=== PATIENT | female | born 1970 | race Caucasian/White ===

== ENCOUNTER 2018-02-08 09:53 | Outpatient (RCR) ==
--- NOTE | 2018-02-08 14:14 | RS.OTEVAL ---
Subjective Date of Note: 02/08/18 Visit #: 1 Date of Evaluation: 02/08/18 Payer Source: Insurance Date of Onset/Injury/Change in Status: 11/25/17 Treatment Diagnosis: M75.02 Adhesive Capsulitis of left shoulder Treatment Side (optional): Left *Precautions: Has had falls recently this year. She has fallen off of her porch several Prior Level of Function.....Patient was independent with: ADL's, Self Care, Work /Vocation, Caregiving, Ambulation/Mobility, Community Integration/Access History of Condition/Mechanism of Injury: Pt reports she has fallen several times off of her porch but does not know exactly when or if she injured her shoulder. Level of Function: Pt has 93% impaired function of the left shoulder and Upper extremity. Pt reports she did drive today with the RUE but she has not been driving. Pt has difficulty sleeping. Pt has moderate difficulty donning her shirts and pulling up her pants. Pt is not able to vacuum or complete combing her hair. Functional Limitations: Sleep, Self Care, ADL's, Reaching, Pushing, Pulling, Lifting, Carrying, Sitting, Standing, Bending, Squatting, Ambulation, Community Access/Integration Current Complaints/Gains: Pt complains that she has gotten in this shape. 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 Pt reports she hurt her back and has been on pain pills since. Pt reports she wants something to be done to help her with her back. Pt reports she did not take her steroids but that she will now. Pt is depressed and cried 2-3 times during the evaluation due to her current situation. Pt does not have motivation. She verbalizes that she wants to have her back fixed and get off of the pain medications. 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 Pt has a few disc bulges, and DDD in her spine. Pt has had accidents where she fell off of the porch and may have her her shoulder then. She is not aware of a specific injury to her shoulder. Diagnostic Testing/Imaging:: x-ray of the left shoulder Hx Home Medications: Estrace, Buspar, Clonapine, Soma, Loratab 10 Patient's Goals: To get her LUE pain free and then get in shape and get to feeling better. Pain Assessment - Pain Description Pain Description: Burning, Tightness, Radiating, Sharp, Throbbing, Acute Pain Location: Left shoulder down to her left wrist. Pain Description: sharp, tender to touch, radiates, shoots up her arm. Current Pain Intensity: 10/10 Worst Pain Intensity: 10/10 Other comments regarding pain:: Pt cried with therapist trying to move the LUE into abduction to measure internal rotation and external rotation. Functional Outcome Measures UE Functional Index: 93 - G Codes & Severity Modifier G Codes: Current impaired percentage is 93% or CM, Goal is CI Source of G Code score: Carry, moving, and handling. Observation - Observation Posture: Rounded Shoulders Handedness: Right Additional Comments: Pt LUE has edema in the posterior scapula, trapezius, collar bone area, and pectoralis muscle. Shoulder ROM: Right WFL's Shoulder Muscle Strength: Right WFL's - Left Shoulder ROM Left Shoulder Flexion: 59 Left Shoulder Extension: 20 Left Shoulder Abduction: 49 Left Shoulder Horizontal Abduction: 0 Left Shoulder Horizontal Adduction: 0 Left Shoulder Internal Rotation: 0 Left Shoulder External Rotation: 0 Left Shoulder ROM Limitations: Soft Tissue Tightness, Muscle Weakness, Pain - Left Shoulder Strength Left Shoulder Flexion: 3- Fair- Left Shoulder Extension: 3- Fair- Left Shoulder Abduction: 3- Fair- Left Shoulder Adduction: 3- Fair- Left Shoulder External Rotation: 3- Fair- Left Shoulder Internal Rotation: 3- Fair- Elbow ROM: Left WFL's Elbow Muscle Strength: Right WFL's - Left Elbow Strength Left Elbow Extension: 3- Fair- Left Elbow Flexion: 3- Fair- Left Forearm Pronation: 3- Fair- Left Forearm Supination: 3- Fair- Wrist ROM: Bilaterally WFL's Wrist Muscle Strength: Right WFL's - Left Wrist Strength Left Wrist Extension: 3- Fair- Left Wrist Flexion: 3- Fair- Left Wrist Radial Deviation: 3- Fair- Left Wrist Ulnar Deviation: 3- Fair- Left Forearm Pronation: 3- Fair- Left Forearm Supination: 3- Fair- - Guard Immigration Strength Left Guard Immigration Strength: 9 Right Guard Immigration Strength: 40 Guard Immigration Strength Left Hand Guard Immigration Strength: 9 Right Hand Guard Immigration Strength: 40 Dynamometer Testing Position: 2nd Position Palpation Palpation Findings: Tenderness, Trigger Point, Muscle Guarding Sensation Right Upper Extremity: Intact/Normal Left Upper Extremity: Intact/Normal Sensation Description: Within Normal Limits Comments: At times she has tingling sensations and sharp bolts of pain in the left shoulder and LUE. Modalities - Hot Pack/Cryotherapy Treatment: Cryotherapy Interventions - Exercise/Activities Exercise/Activities/Manual Therapy: Manual therapy to the subscapularis muscle of the LUE. Pt tolerated posterior scapula tender points. HOME EXERCISE PROGRAM: Take her steroids and ice her shoulder 3x a day - Other Treatment/Services Treatment Details: OT to provide Estim to LUE on high volt to decrease pain. Ultrasound to the LUE to decrease pain and increase External and internal rotation. - Objective Findings Objective Findings:: Pt has pain 10/10 and patient cried with abduction, IR, ER of LUE. - Charges Timed Code Treatment Minutes: 70 Total Treatment Time: 70 Procedures billed for this date of service:: Evaluation medium, MT x 2, CP EVALUATION COMPLEXITY LEVEL: HISTORY: Medium, EXAM OF BODY SYSTEMS: Medium, CLINICAL DECISION MAKING: Medium Assessment Assessment: Pt has edema of the LUE shoulder. Pt has inflammation and is very limited in AROM. Pt has pain 10/10. Pt is limited in functional use and AROM of the LUE in shoulder flexion, extension, abduction, Int. Rot., Ext. Rot. Pt having difficulty with all ADLS. Her is now helpling her get dressed, bathed, etc. Rehab Potential: Good Problems/Comments: Excruciating pain 10/10. Pt has very limited use and ROM of the LUE. Pt has 93% impaired LUE function Short Term Goals Goal #1: Pt pain to decrease to 5/10 at rest. Goal to be met by: 02/22/18 Goal #2: Pt to increase L shldr flexion to 100 deg. to increase combing her hair. Goal to be met by: 02/22/18 Goal #3: Pt to increase L abd. to 90 deg. to increase donning her shirt. Goal to be met by: 02/22/18 Goal #4: Pt to increase ext. Rot. to 45 deg. Goal to be met by: 02/22/18 Wood Chopper Goals Goal #1: Pt pain to decrease to 0-1/10 at rest. Goal to be met by: 03/22/18 Goal #2: Pt to increase L shldr flexion to 150 deg. to increase combing her hair. Goal to be met by: 03/22/18 Goal #3: Pt to increase L abd. to 120deg. to increase donning her shirt. Goal to be met by: 03/22/18 Goal #4: Pt to increase ext. Rot. to 70 deg. Goal to be met by: 03/22/18 Plan - Treatment to be provided Procedures: Therapeutic Exercises, Therapeutic Activity, Gait Training, Neuromuscular Rehab, Manual Therapy, Patient Education Modalities: Electrical Stimulation, Ultrasound/Phonophoresis, Class IV Laser, Cryotherapy, Hot Packs - Treatment Plan Frequency: 3 X week Duration: 6 weeks ORDER # VISITS AND/OR THROUGH DATE: 18 - Treatment Code (1) Stiffness of left shoulder joint Code(s): M25.612 - STIFFNESS OF LEFT SHOULDER, NOT ELSEWHERE CLASSIFIED Comments: M25.612 shoulder joint stiffness (2) Left shoulder pain Code(s): M25.512 - PAIN IN LEFT SHOULDER Qualifiers: Chronicity: acute Qualified Code(s): M25.512 - Pain in left shoulder (3) Limited range of motion (ROM) of shoulder Code(s): M25.619 - STIFFNESS OF UNSPECIFIED SHOULDER, NOT ELSEWHERE CLASSIFIED Comments: M25.619 Limited AROM of Left shoulder
== END 2018-02-10 23:59 | disposition short-term general hospital (02) ==
PROVIDERS: ATTEND Orthopaedic Surgery
DX: M75.02 Adhesive capsulitis of left shoulder (principal)

== ENCOUNTER 2018-02-21 10:00 | Outpatient (RCR) ==
--- NOTE | 2018-02-12 08:25 | RS.OTDNOTE ---
Subjective Date of Note: 02/11/18 Visit #: 2 Date of Evaluation: 02/08/18 Payer Source: Insurance Treatment Diagnosis: M75.02 Adhesive Capsulitis of left shoulder *Precautions: Has had falls recently this year. She has fallen off of her porch several Current Complaints/Gains: Pt tearful during PROM. Pt positioned in supine positon. Pt states she did not take pain meds prior to therapy and was ed on pain levin, ice pack, and use of e=stim during tx and home use of tens unit/CP. Pain Assessment - Pain Description Pain Description: Burning, Tightness, Radiating, Sharp Pain Location: Left shoulder down to her left wrist. Pain Description: sharp, tender to touch, radiates, shoots up her arm. Current Pain Intensity: 8 Worst Pain Intensity: 10 Other comments regarding pain:: Pt guards UE Modalities - Treatment Modality: Electrical Stim Attended Parameters/Method Applied: Unattended estim x15 mins with CP applied in supine position. Attended estim x15 mins with PROM performed in supine position. Treatment Area: cross current to pt tolerance Patient Position: Supine - Hot Pack/Cryotherapy Treatment: Cryotherapy Comments:: CP x 15 mins Interventions - Exercise/Activities Exercise/Activities/Manual Therapy: Manual therapy to the subscapularis muscle of the LUE. Pt tolerated posterior scapula tender points. PROM gentle stretching performed in supine position. Pt ed on A/AROM, codman's, table-top AROM, and isometric ex's. HOME EXERCISE PROGRAM: Take her steroids and ice her shoulder 3x a day - Objective Findings Objective Findings:: Pt has pain 10/10 and patient cried with abduction and IR/ ER of LUE. Pt ed for pain elvin/med's, CP application, and home use of tens unit. - Charges Timed Code Treatment Minutes: 20 Total Treatment Time: 50 Procedures billed for this date of service:: CP ESTIM EX Assessment Patient Education: Education of diagnosis, Body/Joint mechanics, Home Exercise Program, Home Safety, Activity Modification, Education of Plan of Care Patient demonstrates compliance with HEP?: Yes Short Term Goals Goal #1: Pt pain to decrease to 5/10 at rest. Goal to be met by: 02/22/18 Progress towards goal: No Change Goal #2: Pt to increase L shldr flexion to 100 deg. to increase combing her hair. Goal to be met by: 02/22/18 Progress towards goal: No Change Goal #3: Pt to increase L abd. to 90 deg. to increase donning her shirt. Goal to be met by: 02/22/18 Progress towards goal: No Change Goal #4: Pt to increase ext. Rot. to 45 deg. Goal to be met by: 02/22/18 Progress towards goal: No Change Home Health Assistant Goals Goal #1: Pt pain to decrease to 0-1/10 at rest. Goal to be met by: 03/22/18 Progress towards goal: No Change Goal #2: Pt to increase L shldr flexion to 150 deg. to increase combing her hair. Goal to be met by: 03/22/18 Progress towards goal: No Change Goal #3: Pt to increase L abd. to 120deg. to increase donning her shirt. Goal to be met by: 03/22/18 Progress towards goal: No Change Goal #4: Pt to increase ext. Rot. to 70 deg. Goal to be met by: 03/22/18 Progress towards goal: No Change Plan PLAN OF CARE EXPIRES ON:: 03/22/18 ORDER # VISITS AND/OR THROUGH DATE: 18 PLAN: Cont per POC to increase (L) UE AROM and decrease c/o pain.
--- NOTE | 2018-02-14 11:08 | RS.OTDNOTE ---
Subjective Date of Note: 02/13/18 Visit #: 3 Date of Evaluation: 02/08/18 Payer Source: Insurance Treatment Diagnosis: M75.02 Adhesive Capsulitis of left shoulder *Precautions: Has had falls recently this year. She has fallen off of her porch several Current Complaints/Gains: Pt states good compliance with CP application and performing codman's ex. States she took a pain pill today prior to therapy. Pain Assessment - Pain Description Pain Description: Burning, Tightness, Radiating, Sharp Pain Location: Left shoulder down to her left wrist. Pain Description: sharp, tender to touch, radiates, shoots up her arm. Current Pain Intensity: 6 Worst Pain Intensity: 10 Modalities - Treatment Modality: Ultrasound Parameters/Method Applied: 1.0w/cm2 x 20 mins Treatment Area: shoulder Patient Position: Sitting - Hot Pack/Cryotherapy Treatment: Cryotherapy Comments:: cp x 10 mins following PROM Interventions - Exercise/Activities Exercise/Activities/Manual Therapy: Manual therapy to the subscapularis muscle of the LUE. Pt tolerated posterior scapula tender points. PROM gentle stretching performed in supine position shoulder and elbow/wrist all directions with prolonged stretching. Codman's performed x 4 directions. Pt ed continued on A/AROM, codman's, table-top AROM, and isometric ex's. HOME EXERCISE PROGRAM: Take her steroids and ice her shoulder 3x a day - Objective Findings Objective Findings:: Pt has pain 10/10 and patient cried with abduction and IR/ ER of LUE. Pt ed for pain elvin/med's, CP application, and home use of tens unit. - Charges Timed Code Treatment Minutes: 48 Total Treatment Time: 58 Procedures billed for this date of service:: CP MT US EX Assessment Patient Education: Education of diagnosis, Body/Joint mechanics, Home Exercise Program, Home Safety, Activity Modification, Education of Plan of Care Patient demonstrates compliance with HEP?: Yes Short Term Goals Goal #1: Pt pain to decrease to 5/10 at rest. Goal to be met by: 02/22/18 Progress towards goal: Progressing Goal #2: Pt to increase L shldr flexion to 100 deg. to increase combing her hair. Goal to be met by: 02/22/18 Progress towards goal: Progressing Goal #3: Pt to increase L abd. to 90 deg. to increase donning her shirt. Goal to be met by: 02/22/18 Progress towards goal: Progressing Goal #4: Pt to increase ext. Rot. to 45 deg. Goal to be met by: 02/22/18 Progress towards goal: Progressing Senior Care Goals Goal #1: Pt pain to decrease to 0-1/10 at rest. Goal to be met by: 03/22/18 Progress towards goal: Progressing Goal #2: Pt to increase L shldr flexion to 150 deg. to increase combing her hair. Goal to be met by: 03/22/18 Progress towards goal: Progressing Goal #3: Pt to increase L abd. to 120deg. to increase donning her shirt. Goal to be met by: 03/22/18 Progress towards goal: Progressing Goal #4: Pt to increase ext. Rot. to 70 deg. Goal to be met by: 03/22/18 Progress towards goal: Progressing Plan PLAN OF CARE EXPIRES ON:: 03/22/18 ORDER # VISITS AND/OR THROUGH DATE: 18 PLAN: Continue per POC to max fx UE strength/ROM with decreased c/o pain.
--- NOTE | 2018-02-15 15:05 | RS.OTDNOTE ---
Subjective Date of Note: 02/15/18 Visit #: 4 Date of Evaluation: 02/08/18 Payer Source: Insurance Treatment Diagnosis: M75.02 Adhesive Capsulitis of left shoulder *Precautions: Has had falls recently this year. She has fallen off of her porch several Current Complaints/Gains: Pt states she "just wants my life back" several times. States she feels therapy is helping with her UE but is concerned with her back and neck issues also. States she has went to pain elvin and had injections for neck and back pain. Pain Assessment - Pain Description Pain Description: Burning, Tightness, Radiating, Sharp Pain Location: Left shoulder down to her left wrist. Pain Description: sharp, tender to touch, radiates, shoots up her arm. Current Pain Intensity: 4 Worst Pain Intensity: 8 Modalities - Treatment Modality: Ultrasound Parameters/Method Applied: .05w/cm2 x 20 mins Treatment Area: shoulder Patient Position: Sitting - Hot Pack/Cryotherapy Treatment: Cryotherapy (CP x 10 mins) Interventions - Exercise/Activities Exercise/Activities/Manual Therapy: Manual therapy to the subscapularis muscle of the LUE. Pt tolerated posterior scapula tender points. PROM gentle stretching performed in supine position shoulder and elbow/wrist all directions with prolonged stretching. Codman's performed x 4 directions. Finger ladder, ball wall circles performed. Pt ed continued on A/AROM, codman's, table-top AROM, and isometric ex's. HOME EXERCISE PROGRAM: Take her steroids and ice her shoulder 3x a day - Objective Findings Objective Findings:: Pt has pain 10/10 and patient cried with abduction and IR/ ER of LUE. Pt ed for pain elvin/med's, CP application, and home use of tens unit. - Charges Timed Code Treatment Minutes: 48 Total Treatment Time: 57 Procedures billed for this date of service:: CP US MT EX Assessment Patient Education: Education of diagnosis, Body/Joint mechanics, Home Exercise Program, Home Safety, Activity Modification, Education of Plan of Care Patient demonstrates compliance with HEP?: Yes Short Term Goals Goal #1: Pt pain to decrease to 5/10 at rest. Goal to be met by: 02/22/18 Progress towards goal: Progressing Goal #2: Pt to increase L shldr flexion to 100 deg. to increase combing her hair. Goal to be met by: 02/22/18 Progress towards goal: Progressing Goal #3: Pt to increase L abd. to 90 deg. to increase donning her shirt. Goal to be met by: 02/22/18 Progress towards goal: Progressing Goal #4: Pt to increase ext. Rot. to 45 deg. Goal to be met by: 02/22/18 Progress towards goal: Progressing Residential Goals Goal #1: Pt pain to decrease to 0-1/10 at rest. Goal to be met by: 03/22/18 Progress towards goal: Progressing Goal #2: Pt to increase L shldr flexion to 150 deg. to increase combing her hair. Goal to be met by: 03/22/18 Progress towards goal: Progressing Goal #3: Pt to increase L abd. to 120deg. to increase donning her shirt. Goal to be met by: 03/22/18 Progress towards goal: Progressing Goal #4: Pt to increase ext. Rot. to 70 deg. Goal to be met by: 03/22/18 Progress towards goal: Progressing Plan PLAN OF CARE EXPIRES ON:: 03/22/18 ORDER # VISITS AND/OR THROUGH DATE: 18 PLAN: Cont per POC to max fx UE strength/ROM
--- NOTE | 2018-02-18 14:38 | RS.OTDNOTE ---
Subjective Date of Note: 02/18/18 Visit #: 4 Date of Evaluation: 02/08/18 Payer Source: Insurance Treatment Diagnosis: M75.02 Adhesive Capsulitis of left shoulder *Precautions: Has had falls recently this year. She has fallen off of her porch several Current Complaints/Gains: Pt agress she didn't hurt her arm overnight and she shouldn't expect to have it fixed overnight. States she is feeling she is making progress but is slow progress. Pain Assessment - Pain Description Pain Description: Burning, Tightness, Radiating, Sharp Pain Location: Left shoulder down to her left wrist. Pain Description: sharp, tender to touch, radiates, shoots up her arm. Current Pain Intensity: 3 Worst Pain Intensity: 8 Modalities - Treatment Modality: Electrical Stim Unattended Parameters/Method Applied: x 4 pads cross current to max peak of 125V, 20 mins Treatment Area: shoulder Patient Position: Sitting - Hot Pack/Cryotherapy Treatment: Cryotherapy Interventions - Exercise/Activities Exercise/Activities/Manual Therapy: Manual therapy to the subscapularis muscle of the LUE. Pt tolerated posterior scapula tender points. PROM gentle stretching performed in supine position shoulder and elbow/wrist all directions with prolonged stretching. AROM shoulder protraction/isometric ex's. Codman's performed x 4 directions. Finger ladder, ball wall circles, and shelf AROM performed. Pt ed continued on A/AROM, codman's, table-top AROM, and isometric ex's. HOME EXERCISE PROGRAM: Take her steroids and ice her shoulder 3x a day - Objective Findings Objective Findings:: Pt has pain 10/10 and patient cried with abduction and IR/ ER of LUE. Pt ed for pain elvin/med's, CP application, and home use of tens unit. - Charges Timed Code Treatment Minutes: 42 Total Treatment Time: 61 Procedures billed for this date of service:: CP ESTIM EX MT Assessment Patient Education: Education of diagnosis, Body/Joint mechanics, Home Exercise Program, Home Safety, Activity Modification, Education of Plan of Care Patient demonstrates compliance with HEP?: Yes Short Term Goals Goal #1: Pt pain to decrease to 5/10 at rest. Goal to be met by: 02/22/18 Progress towards goal: Progressing Goal #2: Pt to increase L shldr flexion to 100 deg. to increase combing her hair. Goal to be met by: 02/22/18 Progress towards goal: Progressing Goal #3: Pt to increase L abd. to 90 deg. to increase donning her shirt. Goal to be met by: 02/22/18 Progress towards goal: Progressing Goal #4: Pt to increase ext. Rot. to 45 deg. Goal to be met by: 02/22/18 Progress towards goal: Progressing [facility] Goals Goal #1: Pt pain to decrease to 0-1/10 at rest. Goal to be met by: 03/22/18 Progress towards goal: Progressing Goal #2: Pt to increase L shldr flexion to 150 deg. to increase combing her hair. Goal to be met by: 03/22/18 Progress towards goal: Progressing Goal #3: Pt to increase L abd. to 120deg. to increase donning her shirt. Goal to be met by: 03/22/18 Progress towards goal: Progressing Goal #4: Pt to increase ext. Rot. to 70 deg. Goal to be met by: 03/22/18 Progress towards goal: Progressing Plan PLAN OF CARE EXPIRES ON:: 03/22/18 ORDER # VISITS AND/OR THROUGH DATE: 18 PLAN: Cont per POC to max fx UE strength and AROM
--- NOTE | 2018-02-19 11:18 | RS.OTCXNS ---
OT Case Note Date of Scheduled Appointment: 02/19/18 Type: Cancel
--- NOTE | 2018-02-21 11:54 | RS.OTPN ---
Subjective Date of Note: 02/21/18 Visit #: 6 Date of Evaluation: 02/08/18 Payer Source: Insurance Date of Onset/Injury/Change in Status: 11/25/17 Treatment Diagnosis: M75.02 Adhesive Capsulitis of left shoulder Treatment Side (optional): Left *Precautions: Has had falls recently this year. She has fallen off of her porch several Prior Level of Function.....Patient was independent with: ADL's, Self Care, Work /Vocation, Caregiving, Ambulation/Mobility, Community Integration/Access History of Condition/Mechanism of Injury: Pt reports she has fallen several times off of her porch but does not know exactly when or if she injured her shoulder. Level of Function: Pt has 93% impaired function of the left shoulder and Upper extremity. Pt reports she did drive today with the RUE but she has not been driving. Pt has difficulty sleeping. Pt has moderate difficulty donning her shirts and pulling up her pants. Pt is not able to vacuum or complete combing her hair. Functional Limitations: Sleep, Self Care, ADL's, Reaching, Pushing, Pulling, Lifting, Carrying, Sitting, Standing, Bending, Squatting, Ambulation, Community Access/Integration Current Complaints/Gains: Pt reports her pain has decreased to 4/10 today. Pt reports a clicking with sharp pain in the collar bone area. OT heard a clicking sound with flexion however this sound was intermittent. Pain Assessment - Pain Description Pain Description: Burning, Tightness, Radiating, Sharp Pain Location: Left shoulder down to her left wrist. Pain Description: sharp, tender to touch, radiates, shoots up her arm. Current Pain Intensity: 4/10 Worst Pain Intensity: 9/10 Other comments regarding pain:: Pain after treatment was a 5/10. Functional Outcome Measures UE Functional Index: 91 - G Codes & Severity Modifier G Codes: Current is CM of 91% impaired. Goal is Source of G Code score: Carry, moving, and handling Observation - Observation Posture: Forward Head, Rounded Shoulders Handedness: Right Shoulder ROM: Right WFL's Shoulder Muscle Strength: Right WFL's - Left Shoulder ROM Left Shoulder Flexion: 90 Left Shoulder Extension: 25 Left Shoulder Abduction: 85 Left Shoulder Internal Rotation: 20 Left Shoulder External Rotation: 30 Left Shoulder ROM Limitations: Soft Tissue Tightness, Muscle Weakness, Pain - Left Shoulder Strength Left Shoulder Flexion: 3- Fair- Left Shoulder Extension: 3- Fair- Left Shoulder Abduction: 3- Fair- Left Shoulder Adduction: 3- Fair- Left Shoulder External Rotation: 2+ Poor+ Left Shoulder Internal Rotation: 2+ Poor+ Elbow ROM: Bilaterally WFL's Elbow Muscle Strength: Right WFL's - Left Elbow Strength Left Elbow Extension: 4- Good- Left Elbow Flexion: 4- Good- Left Forearm Pronation: 4- Good- Left Forearm Supination: 4- Good- Wrist ROM: Bilaterally WFL's Wrist Muscle Strength: Right WFL's - Right Wrist Strength Right Wrist Extension: 4- Good- Right Wrist Flexion: 4- Good- Right Wrist Radial Deviation: 4- Good- Right Wrist Ulnar Deviation: 4- Good- Right Forearm Pronation: 4- Good- Right Forearm Supination: 4- Good- Palpation Palpation Findings: Tenderness, Trigger Point, Muscle Guarding Sensation Right Upper Extremity: Intact/Normal (Sensation has improved some.) Left Upper Extremity: Intact/Normal Comments: At times she has tingling sensations and sharp bolts of pain in the left shoulder and LUE. Modalities - Treatment Modality: Ultrasound Parameters/Method Applied: .4 w/cm2 for 9 minutes to the Right supraspinatus muscles to decrease pain. - Hot Pack/Cryotherapy Treatment: Cryotherapy Comments:: Cold to the Left shoulder for 10 minutes Interventions - Exercise/Activities Exercise/Activities/Manual Therapy: Manual therapy to the subscapularis muscle of the LUE. Pt tolerated posterior scapula tender points. PROM gentle stretching performed in supine position shoulder and elbow/wrist all directions with prolonged stretching. AROM shoulder protraction/isometric ex's. Codman's performed x 4 directions. Finger ladder, ball wall circles, and shelf AROM performed. Pt ed continued on A/AROM, codman's, table-top AROM, and isometric ex's. HOME EXERCISE PROGRAM: Take her steroids and ice her shoulder 3x a day - Objective Findings Objective Findings:: Pt has pain 10/10 and patient cried with abduction and IR/ ER of LUE. Pt ed for pain elvin/med's, CP application, and home use of tens unit. - Charges Timed Code Treatment Minutes: 65 Total Treatment Time: 60 Procedures billed for this date of service:: US, MT x 2, EX, CP Assessment Assessment: Pt has made progress with her occupational therapy treatment. Pt has increased her shoulder AROM approximately 50%. Pt is now able to complete shoulder flexion to 90 deg. with a clicking sound to the Left clavicle with the shoulder flexion AROM. Pt reports excruciating pain when there is a clicking. Pt continues with 91% impairments in UE functional use. Rehab Potential: Good Problems/Comments: Decreased shoulder AROM, increased pain in the LUE shoulder. Pt continues with pain limiting her functional occupational performance. Pt has a clicking sound in her collar bone area with shoulder flexion intermittently. Short Term Goals Goal #1: Pt pain to decrease to 5/10 at rest. Goal to be met by: 02/22/18 Progress towards goal: Progressing Goal #2: Pt to increase L shldr flexion to 100 deg. to increase combing her hair. Goal to be met by: 02/22/18 Progress towards goal: Progressing Goal #3: Pt to increase L abd. to 90 deg. to increase donning her shirt. Goal to be met by: 02/22/18 Progress towards goal: Progressing Goal #4: Pt to increase ext. Rot. to 45 deg. Goal to be met by: 02/22/18 Progress towards goal: Progressing Skilled Nursing Goals Goal #1: Pt pain to decrease to 0-1/10 at rest. Goal to be met by: 03/22/18 Progress towards goal: Progressing Goal #2: Pt to increase L shldr flexion to 150 deg. to increase combing her hair. Goal to be met by: 03/22/18 Progress towards goal: Progressing Goal #3: Pt to increase L abd. to 120deg. to increase donning her shirt. Goal to be met by: 03/22/18 Progress towards goal: Progressing Goal #4: Pt to increase ext. Rot. to 70 deg. Goal to be met by: 03/22/18 Progress towards goal: Progressing Plan PLAN OF CARE EXPIRES ON:: 03/22/18 ORDER # VISITS AND/OR THROUGH DATE: 18 PLAN: Pt goes to the doctor on 02/25/18. Pt feels that she needs to have the doctor to look at her shoulder again. Pt improving, however, she has pain in clicking in the Left shoulder with shoulder flexion. Frequency: 3 X week Duration: 4 weeks
== END 2018-03-13 23:59 ==
PROVIDERS: ATTEND Orthopaedic Surgery
DX: M75.02 Adhesive capsulitis of left shoulder (principal)

== ENCOUNTER 2018-03-13 10:00 | Outpatient (RCR) ==
--- NOTE | 2018-03-08 15:15 | RS.OTEVAL ---
Subjective Date of Note: 03/08/18 Visit #: 1 Number of visits approved by Insurance: 9 Date of Evaluation: 02/08/18 Payer Source: Insurance Date of Onset/Injury/Change in Status: 11/25/17 Surgery Performed?: Yes Date of Procedure: 03/07/18 Treatment Diagnosis: M75.02 Adhesive Capsulitis of left shoulder Treatment Side (optional): Left *Precautions: Has had falls recently this year. She has fallen off of her porch several Prior Level of Function.....Patient was independent with: ADL's, Self Care, Work /Vocation, Caregiving, Ambulation/Mobility, Community Integration/Access History of Condition/Mechanism of Injury: Pt reports she has fallen several times off of her porch but does not know exactly when or if she injured her shoulder. Level of Function: Pt has 97% impaired function of the left shoulder and Upper extremity. Pt reports she did drive today with the other arm. Pt has difficulty sleeping. Pt has moderate difficulty donning her shirts and pulling up her pants. Pt's had to help her get dressed. Pt is not able to vacuum or complete combing her hair. Functional Limitations: Sleep, Self Care, ADL's, Reaching, Pushing, Pulling, Lifting, Carrying, Sitting, Standing, Bending, Squatting, Ambulation, Community Access/Integration Current Complaints/Gains: Following surgery, patient has increased PROM, increased pain and decreased AROM due to edema and pain. Pt continues with limited external rotation. Pt has increased ABD, shoulder flexion and internal rotation. Pt pain is 9/10 at beginning of evaluation. 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 Pt has a few disc bulges, and DDD in her spine. Pt has had accidents where she fell off of the porch and may have her her shoulder then. She is not aware of a specific injury to her shoulder. Surgical History Comments:: Pt had a Left shoulder manipulation completed on . Diagnostic Testing/Imaging:: x-ray of the left shoulder Hx Home Medications: Estrace, Buspar, Clonapine, Soma, Loratab 10 Patient's Goals: To get her LUE pain free and then get in shape and get to feeling better. Pain Assessment - Pain Description Pain Description: Burning, Tightness, Sharp, Throbbing, Aching, Acute Pain Location: Left shoulder down to her left wrist. Pain in the deltoid. Pain Description: sharp, tender to touch, radiates, shoots up her arm. Current Pain Intensity: 9/10 Worst Pain Intensity: 10/10 Functional Outcome Measures UE Functional Index: 97 - G Codes & Severity Modifier G Codes: Initial CM at 97.5% impaired. Goal is CH Source of G Code score: Carry, moving, and handling Objects. Observation - Observation Posture: Forward Head, Rounded Shoulders Handedness: Right Shoulder ROM: Right WFL's Shoulder Muscle Strength: Right WFL's - Left Shoulder ROM Left Shoulder Flexion: 70 Left Shoulder Extension: 23 Left Shoulder Abduction: 58 Left Shoulder Horizontal Abduction: 0 Left Shoulder Horizontal Adduction: 10 Left Shoulder Internal Rotation: 37 Left Shoulder External Rotation: 0 Left Shoulder ROM Limitations: Soft Tissue Tightness, Muscle Weakness, Pain - Left Shoulder Strength Left Shoulder Flexion: 3- Fair- Left Shoulder Extension: 2+ Poor+ Left Shoulder Abduction: 3- Fair- Left Shoulder Adduction: 3- Fair- Left Shoulder External Rotation: 3- Fair- Left Shoulder Internal Rotation: 3- Fair- () Elbow ROM: Bilaterally WFL's Elbow Muscle Strength: Right WFL's - Left Elbow Strength Left Elbow Extension: 3 Fair Left Elbow Flexion: 3 Fair Left Forearm Pronation: 4- Good- Left Forearm Supination: 4- Good- Wrist ROM: Bilaterally WFL's Wrist Muscle Strength: Right WFL's - Left Wrist Strength Left Wrist Extension: 3 Fair Left Wrist Flexion: 3 Fair Left Wrist Radial Deviation: 3 Fair Left Wrist Ulnar Deviation: 3 Fair Left Forearm Pronation: 3 Fair Left Forearm Supination: 3 Fair - Supervisor Tree Trimming Strength Left Supervisor Tree Trimming Strength: 11 Right Supervisor Tree Trimming Strength: 14 Supervisor Tree Trimming Strength Left Hand Supervisor Tree Trimming Strength: 11 Right Hand Supervisor Tree Trimming Strength: 14 Dynamometer Testing Position: 2nd Position Palpation Palpation Findings: Tenderness, Trigger Point, Muscle Guarding Sensation Right Upper Extremity: Intact/Normal (Sensation has improved some.) Left Upper Extremity: Intact/Normal Additional Comments Additional Comments: Pt reports they gave her a sling to wear but it hurts too much. So patient does not wear the sling. Modalities - Treatment Modality: Ultrasound Parameters/Method Applied: .4 w/cm2 for 10 minutes after setup to LUE shoulder deltoid/ humerus area. Treatment Area: LUE deltoid/humerus area of shoulder Patient Position: Sitting - Hot Pack/Cryotherapy Treatment: Cryotherapy Interventions - Exercise/Activities Exercise/Activities/Manual Therapy: Pt tolerated Codman's performed x 4 directions. Pt educated regarding completing codman's exercises and ice to LUE shoulder to decrease edema and inflammation. HOME EXERCISE PROGRAM: Take her steroids and ice her shoulder 3x a day - Objective Findings Objective Findings:: Pt has pain 9/10 and patient cried off and on during the evaluation. Pt hurt more with abduction and IR/ER of LUE. Pt ed for pain elvin/ med's, CP. - Charges Timed Code Treatment Minutes: 65 Total Treatment Time: 70 Procedures billed for this date of service:: Evaluation-Moderate, US, EX EVALUATION COMPLEXITY LEVEL: HISTORY: Medium, EXAM OF BODY SYSTEMS: Medium, CLINICAL DECISION MAKING: Medium Assessment Assessment: OT able to range patient in full ROM. Pt has increased pain with the external rotation, abduction, and Horizontal adduction. Patient Education: Home Exercise Program, Home Safety, Education of Plan of Care Rehab Potential: Good Problems/Comments: Pt has pain and inflammation in the LUE due to the manipulation. US completed to the deltoid and scapula to decrease pain and decrease scar tissue. Pt has 9/10 pain and is encouraged to start using the arm some. Pt came in for evaluation guarding the left shoulder. Short Term Goals Goal #1: Pt pain to decrease to 5/10 at rest. Goal to be met by: 03/22/18 Goal #2: Pt to increase L shldr flexion to 100 deg. to increase combing her hair. Goal to be met by: 03/22/18 Goal #3: Pt to increase L abd. to 90 deg. to increase donning her shirt. Goal to be met by: 03/22/18 Goal #4: Pt to increase ext. Rot. to 45 deg. Goal to be met by: 03/22/18 Tire Assembler Goals Goal #1: Pt pain to decrease to 0-1/10 at rest. Goal to be met by: 04/01/18 Goal #2: Pt to increase L shldr flexion to 150 deg. to increase combing her hair. Goal to be met by: 04/01/18 Goal #3: Pt to increase L abd. to 120deg. to increase donning her shirt. Goal to be met by: 04/01/18 Goal #4: Pt to increase ext. Rot. to 70 deg. Goal to be met by: 04/01/18 Plan - Treatment to be provided Procedures: Therapeutic Exercises, Therapeutic Activity, Gait Training, Neuromuscular Rehab, Manual Therapy, Patient Education Modalities: Electrical Stimulation, Ultrasound/Phonophoresis, Class IV Laser, Cryotherapy, Hot Packs - Treatment Plan Frequency: 3 X week Duration: 3 weeks Dates of Tire Assembler Goals: 04/01/18 Expiration date of current Insurance Approval:: 04/01/18 - Treatment Code (1) Left shoulder pain Code(s): M25.512 - PAIN IN LEFT SHOULDER Qualifiers: Chronicity: acute Qualified Code(s): M25.512 - Pain in left shoulder (2) Stiffness of left shoulder joint Code(s): M25.612 - STIFFNESS OF LEFT SHOULDER, NOT ELSEWHERE CLASSIFIED Comments: M25.612 Stiffness of left shoulder joint (3) Limited range of motion (ROM) of shoulder Code(s): M25.619 - STIFFNESS OF UNSPECIFIED SHOULDER, NOT ELSEWHERE CLASSIFIED Comments: M25.619 Limited AROM of LEft UE
--- NOTE | 2018-03-13 13:39 | RS.OTDNOTE ---
Subjective Date of Note: 03/11/18 Visit #: 2 Number of visits approved by Insurance: 9 Date of Evaluation: 02/08/18 Payer Source: Insurance Treatment Diagnosis: M75.02 Adhesive Capsulitis of left shoulder *Precautions: Has had falls recently this year. She has fallen off of her porch several Current Complaints/Gains: Pt with 10/10 c/o pain with PROM in supine position. States that she has been performing ice pack applications. Pain Assessment - Pain Description Pain Description: Burning, Tightness, Sharp, Throbbing, Aching, Acute Pain Location: Left shoulder down to her left wrist. Pain in the deltoid. Pain Description: sharp, tender to touch, radiates, shoots up her arm. Current Pain Intensity: 8 Worst Pain Intensity: 10 Modalities - Treatment Modality: Ultrasound Parameters/Method Applied: 1.5w/cm2 x 10 mins Treatment Area: anterior/posterior shoulder Patient Position: Sitting - Hot Pack/Cryotherapy Treatment: Cryotherapy Interventions - Exercise/Activities Exercise/Activities/Manual Therapy: Pt tolerated Codman's performed x 4 directions with max ed for utilizing body weight vs UE muslcls. Pt in supine position for TE/PROM of all shoulder movements and AROM of shoulder shrugs/ retraction. HOME EXERCISE PROGRAM: Take her steroids and ice her shoulder 3x a day - Objective Findings Objective Findings:: Pt has pain 9/10 and patient cried off and on during the evaluation. Pt hurt more with abduction and IR/ER of LUE. Pt ed for pain elvin/ med's, CP. - Charges Timed Code Treatment Minutes: 48 Total Treatment Time: 62 Procedures billed for this date of service:: CP US MT EX Assessment Patient Education: Education of diagnosis, Body/Joint mechanics, Home Exercise Program, Home Safety, Activity Modification, Education of Plan of Care Patient demonstrates compliance with HEP?: Yes Short Term Goals Goal #1: Pt pain to decrease to 5/10 at rest. Goal to be met by: 03/22/18 Progress towards goal: Progressing Goal #2: Pt to increase L shldr flexion to 100 deg. to increase combing her hair. Goal to be met by: 03/22/18 Progress towards goal: Progressing Goal #3: Pt to increase L abd. to 90 deg. to increase donning her shirt. Goal to be met by: 03/22/18 Progress towards goal: Progressing Goal #4: Pt to increase ext. Rot. to 45 deg. Goal to be met by: 03/22/18 Progress towards goal: Progressing Camera Repairer Goals Goal #1: Pt pain to decrease to 0-1/10 at rest. Goal to be met by: 04/01/18 Progress towards goal: Progressing Goal #2: Pt to increase L shldr flexion to 150 deg. to increase combing her hair. Goal to be met by: 04/01/18 Progress towards goal: Progressing Goal #3: Pt to increase L abd. to 120deg. to increase donning her shirt. Goal to be met by: 04/01/18 Progress towards goal: Progressing Goal #4: Pt to increase ext. Rot. to 70 deg. Goal to be met by: 04/01/18 Progress towards goal: Progressing Plan Dates of Retirement Goals: 04/01/18 Expiration date of current Insurance Approval:: NA PLAN: Cont per POC to max fx I strength and AROM
--- NOTE | 2018-03-14 08:38 | RS.OTDNOTE ---
Subjective Date of Note: 03/13/18 Visit #: 3 Number of visits approved by Insurance: 9 Date of Evaluation: 02/08/18 Payer Source: Insurance Treatment Diagnosis: M75.02 Adhesive Capsulitis of left shoulder *Precautions: Has had falls recently this year. She has fallen off of her porch several Current Complaints/Gains: Pt states pain medicine doesn't help much. States she has taken lortab for 10+ years 2* a back injury. States good compliance with pendulums and applying CP at home several times daily. Pain Assessment - Pain Description Pain Description: Burning, Tightness, Sharp, Throbbing, Aching, Acute Pain Location: Left shoulder down to her left wrist. Pain in the deltoid. Pain Description: sharp, tender to touch, radiates, shoots up her arm. Current Pain Intensity: 3 Worst Pain Intensity: 8 Modalities - Treatment Modality: Ultrasound Parameters/Method Applied: 1.5w/cm2 x 10 mins - Hot Pack/Cryotherapy Treatment: Cryotherapy Comments:: CP x 10 mins Interventions - Exercise/Activities Exercise/Activities/Manual Therapy: Pt tolerated Codman's performed x 4 directions with max ed for utilizing body weight vs UE muslcls. Pt in supine position for MT/trigger point therapy and TE/PROM of all shoulder movements and AROM of shoulder shrugs/retraction. B UE ciara system utilized x 2+ mins with pt ed for home use. HOME EXERCISE PROGRAM: Take her steroids and ice her shoulder 3x a day - Objective Findings Objective Findings:: Pt has pain 9/10 and patient cried off and on during the evaluation. Pt hurt more with abduction and IR/ER of LUE. Pt ed for pain elvin/ med's, CP. - Charges Timed Code Treatment Minutes: 50 Total Treatment Time: 60 Procedures billed for this date of service:: CP MT US EX Assessment Patient Education: Education of diagnosis, Body/Joint mechanics, Home Exercise Program, Home Safety, Activity Modification, Education of Plan of Care Patient demonstrates compliance with HEP?: Yes Short Term Goals Goal #1: Pt pain to decrease to 5/10 at rest. Goal to be met by: 03/22/18 Progress towards goal: Progressing Goal #2: Pt to increase L shldr flexion to 100 deg. to increase combing her hair. Goal to be met by: 03/22/18 Progress towards goal: Partially Met Comments: following PROM Goal #3: Pt to increase L abd. to 90 deg. to increase donning her shirt. Goal to be met by: 03/22/18 Progress towards goal: Partially Met Comments: following PROM Goal #4: Pt to increase ext. Rot. to 45 deg. Goal to be met by: 03/22/18 Progress towards goal: Progressing Property Management Assistant Goals Goal #1: Pt pain to decrease to 0-1/10 at rest. Goal to be met by: 04/01/18 Progress towards goal: Progressing Goal #2: Pt to increase L shldr flexion to 150 deg. to increase combing her hair. Goal to be met by: 04/01/18 Progress towards goal: Progressing Goal #3: Pt to increase L abd. to 120deg. to increase donning her shirt. Goal to be met by: 04/01/18 Progress towards goal: Progressing Goal #4: Pt to increase ext. Rot. to 70 deg. Goal to be met by: 04/01/18 Progress towards goal: Progressing Plan Dates of Property Management Assistant Goals: 04/01/18 Expiration date of current Insurance Approval:: 9 visits PLAN: Cont per POC to max fx UE AROM with decreased c/o pain.
== END 2018-03-13 23:59 ==
PROVIDERS: ATTEND Orthopaedic Surgery
DX: M75.02 Adhesive capsulitis of left shoulder (principal)

== ENCOUNTER 2018-09-04 09:25 | Outpatient (CLI) | END 2018-09-04 09:26 | disposition home or self-care (01) | LOC: LAB 09:25 | PROVIDERS: ATTEND Family Medicine | DX: R60.9 Edema, unspecified (principal) | CPT/HCPCS: 36415; 80048; 84436; 84443; 85027 ==